=== PATIENT | male | born 1935 | race Caucasian/White ===

== ENCOUNTER 2017-04-01 18:49 | Emergency (ER) | payer OTHER ==
[~2017-04-01] VITALS: Ht 177.8 cm; Wt 64.9 kg
[2017-04-01] MEDS ORDERED: ONDANSETRON HCL INJ 2 MG/ML VIAL IV STA (19:11)
[2017-04-01] MEDS ORDERED: SODIUM CHLORIDE 0.9% 1000ML 1,000 ML IV ONE (19:15)
[2017-04-01 19:25] LABS: BASOPHILS % 0.1 % (0.0-1.0); EOSINOPHILS % 0.1 % (0.0-6.0); HEMOGLOBIN 14.1 g/dL (14.0-18.0); LYMPHOCYTES # (AUTO) 0.5 (1.0-3.2); LYMPHOCYTES % 5.4 % (18.0-39.1); MEAN CORPUSCULAR HEMOGLOBIN 31.5 pg (28-32); MEAN CORPUSCULAR HGB CONC 32.8 g/dL (31-35); MONOCYTES # (AUTO) 0.5 (0.2-0.8); MONOCYTES % 5.5 % (4.4-11.3); NEUTROPHILS # (AUTO) 8.6 (2.1-6.9); NEUTROPHILS % 88.4 % (38.7-80.0); PLATELET COUNT 147 x10e3/uL (140-360); RED BLOOD COUNT 4.48 x10e6/uL (4.3-5.7); RED CELL DISTRIBUTION WIDTH 13.6 % (11.7-14.4)
[2017-04-01 19:37] LABS: ALANINE AMINOTRANSFERASE 19 IU/L (0-55); ALBUMIN 3.6 g/dL (3.5-5.0); ALBUMIN/GLOBULIN RATIO 0.8 (0.8-2.0); ALKALINE PHOSPHATASE 83 IU/L (40-150); AMYLASE 47 U/L (25-125); ANION GAP 12.5 mmol/L (8-16); BLOOD UREA NITROGEN 29 mg/dL (7-26); BUN/CREATININE RATIO 28 (6-25); CALCIUM 8.9 mg/dL (8.4-10.2); CARBON DIOXIDE 22 mmol/L (22-29); CHLORIDE 109 mmol/L (98-107); CREATINE KINASE 104 IU/L (30-200); CREATININE, SERUM 1.03 mg/dL (0.72-1.25); EST GLOMERULAR FILTRATION RATE > 60 ML/MIN (60-); GLUCOSE 147 mg/dL (74-118); LIPASE 4 U/L (8-78); POTASSIUM 3.5 mmol/L (3.5-5.1); SODIUM 140 mmol/L (136-145)
[2017-04-01 19:44] LABS: TROPONIN I 0.013 ng/mL (0-0.300)
--- NOTE | 2017-04-01 19:53 | Diagnostic Imaging Report ---
PROCEDURE:ABDOMEN ACUTE SERIES W/PA CXR COMPARISON:None. INDICATIONS:NAUSEA, VOMITING FINDINGS: PA chest: Heart size normal. Hyperinflation of the lungs with no focal pulmonary opacity, pleural effusion or pneumothorax. There is a 1 cm nodular density projected on the lower right chest. This likely represents nipple shadow. No free air beneath the diaphragm. Abdominal series: Supine and upright views of the abdomen show normal distribution of air in the small and large bowel. There is a curvilinear calcification extending 7 cm to the left of the mid lumbar spine suggesting the presence of a large abdominal aortic aneurysm. No acute bony abnormality. CONCLUSION: 1. No evidence for acute disease in the chest. Likely nipple shadow projected on the lower right hemithorax. 2. Curvilinear calcification projected to the left of lumbar spine concerning for a large abdominal aortic aneurysm, possibly 7 cm. This may be further evaluated with abdominal CT or ultrasound. 3. No bowel dilatation or evidence for obstruction. No pneumoperitoneum. Dictated by: Phillip Marley M.D. on 04/01/2017 at 20:02 Electronically approved by: Phillip Marley M.D. on 04/01/2017 at 20:02
[2017-04-01 20:30] LABS: KETONES,URINE NEGATIVE (NEGATIVE); LEUKOCYTE ESTERASE ,URINE NEGATIVE (NEGATIVE); NITRITE,URINE NEGATIVE (NEGATIVE); URINE UROBILINOGEN 0.2 mg/dL (0.2 - 1)
[2017-04-01 20:32] LABS: BILIRUBIN,URINE 1+ (NEGATIVE); CLARITY,URINE CLEAR (CLEAR); COLOR,URINE YELLOW (YELLOW); PROTEIN,URINE DIPSTICK 1+ (NEGATIVE)
[2017-04-01 20:49] LABS: BACTERIA,URINE FEW /HPF; EPITHELIAL CELLS,URINE FEW /LPF; RBC,URINE 0-5 /HPF (0-5)
[2017-04-01 20:50] LABS: HYALINE CASTS >15 (0-1)
--- NOTE | 2017-04-01 21:55 | Diagnostic Imaging Report ---
EXAM: CT ABDOMEN/PELVIS W DATE: 04/01/2017 8:41 PM INDICATION: Evaluate for possible abdominal aortic aneurysm, vomiting, diarrhea COMPARISON: 09/19/2010 TECHNIQUE: The abdomen and pelvis were scanned using a multidetector helical scanner. Coronal and sagittal reformations were obtained. Routine protocol performed. IV Contrast: 100 ml Isovue 370 FINDINGS: Slightly degraded by motion artifact. LOWER THORAX: Bibasilar reticular opacities, favor scarring, with underlying emphysema. LIVER/BILIARY: No masses. No ductal dilatation. GALLBLADDER: Unremarkable SPLEEN: Unremarkable PANCREAS: Unremarkable ADRENALS: No nodules KIDNEYS: Symmetric perfusion. No enhancing masses. No hydronephrosis. GI TRACT: No distention, wall thickening or evidence of obstruction. VESSELS: There are severe atherosclerotic changes of the aorta and branch vessels. There is a large infrarenal abdominal aortic aneurysm, 9.9 cm in length with maximal dimension 5.8 x 6.3 cm. There is a large amount of mural thrombus. PERITONEUM/RETROPERITONEUM: No free air or fluid LYMPH NODES: No lymphadenopathy REPRODUCTIVE ORGANS/BLADDER: Unremarkable SOFT TISSUES: Unremarkable BONES: Severe multilevel degenerative changes, worse at L3-S1. IMPRESSION: Large fusiform infrarenal abdominal aortic aneurysm (maximal dimension 6.3 cm). No evidence of rupture or surrounding inflammatory changes. Signed by: Dr Minna Callahan MD on 04/01/2017 9:52 PM
[2017-04-01] MEDS ORDERED: IOPAMIDOL 370 MG/ML 200 ML INFUS..BTL INJ ONE (22:18)
[2017-04-01] MEDS ORDERED: SODIUM CHLORIDE 0.9% 50ML 50 ML ONE (22:18)
== END 2017-04-01 23:48 | disposition home or self-care (01) ==
LOC: ER 18:49
DX: R11.2 Nausea with vomiting, unspecified (principal); R19.7 Diarrhea, unspecified; I71.4 Abdominal aortic aneurysm, without rupture; J44.9 Chronic obstructive pulmonary disease, unspecified; Z85.46 Personal history of malignant neoplasm of prostate
CPT/HCPCS: 36415; 74022; 74177; 80053; 81001; 82150; 82550; 82553; 83690; 84484; 85025; 93005; 99284; J2405; J7030; Q9967